=== PATIENT | male | born 1950 | race Caucasian/White ===

== ENCOUNTER 2023-04-23 07:50 | Outpatient (CLI) | payer MEDICARE, SELFPAY ==
--- NOTE | 2023-04-23 06:00 | DI.RAD_ITS ---
Exam(s) XR PAIN CLINIC LUMBAR SP 2V EXAM: XR PAIN CLINIC LUMBAR SP 2V CLINICAL HISTORY: Dx: Lumbar Radiculopathy TECHNIQUE: 2D and realtime digital imaging was performed. CONTRAST MATERIAL: Refer to procedure report. COMPARISON: No exams were available for comparison FINDINGS: Fluoroscopy was provided for Dr. Hudson during the performance of a bilateral transforaminal epidural steroid injections. Please refer to the procedure report for complete details. Ka,r=33.9 mGy IMPRESSION:
[2023-04-23 08:14] VITALS: BP 152/87; PULSE 56; RESP 20; TEMP 36.9; O2SAT 96
[2023-04-23] MEDS: Dexamethasone Sod. Phos./Pres-Free 10 MG/ML VIAL IJ (08:59)
[2023-04-23] MEDS: Omnipaque 240 MG/ML 50 ML BTL IJ (09:00)
[2023-04-23] MEDS: Lidocaine 2% Pres-Free 5 ML VIAL (09:04)
[2023-04-23 09:05] VITALS: BP 145/84; PULSE 59; RESP 15; O2SAT 99
--- NOTE | 2023-04-23 14:33 | PDOC.PAIN ---
Date of service: 04/23/23 Time of Service: 09:15 Pain Managment Procedure Note Procedure Note Procedure Note: PROCEDURE NOTE BILATERAL L2 TRANSFORAMINAL EPIDURAL STEROID INJECTION Chief Complaint: bilateral leg pain. Date of Service: April 23, 2023 Patient: Zeyad Richey Provider: Melo Hudson DO, MPH Zeyadellie Richey has been [facility] for a transforaminal epidural steroid injection. Pre-operative diagnosis: Lumbosacral Radiculopathy Post-operative diagnosis: Same Pre-Procedure Pain: VAS= 6/10 Comments: Dr Escobar previously evaluated the patient in his clinic and the patient's symptoms remain the same as they were at that time. 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 Zeyad was interviewed and the medical record reviewed. There were no medical, pharmacologic, radiographic or other structural contraindications to attempting a fluoroscopically-guided transforaminal lumbar epidural steroid injection. The risks, benefits, and potential side effects were reviewed with the patient. Risks include, but are not limited to, [id number]-oxyynhuw headache, infection, bleeding, nerve injury, spinal cord damage, allergic reaction, possible increase in symptoms over the ensuing 24 to 48 hours, paralysis, and . The patient appeared to understand, questions were answered to the patient?s satisfaction and the patient agreed to proceed. Once I obtained informed verbal consent, the printed consent form was signed by the patient and myself. A standard time-out procedure was performed. Zeyad was placed in the prone position on the fluoroscopy table and automated blood pressure cuff, three lead EKG, and pulse oximeter were applied. The skin entry point for entering/approaching the L2 space for the transforaminal epidural steroid injection was marked. Following thorough chlorhexadine preparation of the skin and draping, 2 ml of 1% lidocaine was infiltrated into the skin over the entry point and subcutaneous tissues. Under fluoroscopic guidance, in ipsilateral oblique view, a co-axial approach using a 5 22G spinal needle was advanced to the base of the left L2 pedicle. The needle was advanced to the superio-posterior aspect of the neural foramen under lateral view. Oblique and AP views were rechecked. Under AP and lateral views, 1 ml of Omnipaque-240 was injected while visualized with fluoroscopy. There was no evidence of intravascular or intrathecal uptake, the epidural space was delineated. Next 0.75 ml of preservative-free Dexamethasone (10 mg/ml) was injected to each site after negative aspiration. This was followed by 1 ml of preservative-free 1% lidocaine. This exact procedure was repeated at the right L2 level. (49 mls of Omnipaque-240 was wasted) There was no unusual discomfort expressed by Zeyad. The needle was withdrawn without difficulty. Zeyad was observed and was without hemodynamic, neurologic, or allergic reactions.? Fluoroscopic images were digitally archived. Zeyad's vital signs were stable throughout the procedure and were as recorded in the docflowsheet by the nursing staff.? If given, dosages of intravenous drugs for anxiolysis and analgesia were documented in MAR. Follow up plans and appointments were discussed with Zeyad. Post procedure instruction was given as documented in nursing records and having met discharge criteria Zeyad was [facility]. COMMENTS: Post-procedure pain: VAS= 2/10. Zeyad to contact [facility] as needed. If at least 50% improvement in pain and/or function for at least 3 months is achieved, this procedure can be repeated. I personally performed this entire procedure. MELO HUDSON DO, MPH ABPMR-subspecialty board certification in Pain Medicine [facility]
== END 2023-04-23 07:51 | disposition home or self-care (01) ==
LOC: PC 07:52
PROVIDERS: Visit Provider Preventive Medicine Occupational Medicine
DX: M54.50 Low back pain, unspecified (principal); M54.17 Radiculopathy, lumbosacral region
CPT/HCPCS: 64483; 72100; Q9967